=== PATIENT | female | born 1955 | race Two or more races ===

== ENCOUNTER 2017-06-07 20:36 | Emergency (ER) | payer MEDICARE, MEDICAID ==
[~2017-06-07] VITALS: Ht 162.6 cm; Wt 76.8 kg
[2017-06-07] MEDS ORDERED: SODIUM CHLORIDE 0.9% 1,000ML IVBOLUS ONE (21:00)
[2017-06-07] MEDS ORDERED: MORPHINE SULFATE 4 MG/ML, 1ML IVPush PRN (21:00)
[2017-06-07] MEDS ORDERED: ONDANSETRON 2MG/ML, 2ML IVPush ONE (21:00)
[2017-06-07] MEDS ORDERED: LISI-170 PO (21:05)
[2017-06-07] MEDS ORDERED: OXYC5TAB3 PO (21:05)
[2017-06-07] MEDS ORDERED: CYCL5TAB PO (21:05)
[2017-06-07] MEDS ORDERED: NAPR500T PO (21:05)
[2017-06-07] MEDS ORDERED: ONDANSETRON 2MG/ML, 2ML ONE (21:06)
[2017-06-07] MEDS ORDERED: MORPHINE SULFATE 4 MG/ML, 1ML ONE (21:06)
[2017-06-07 21:14] LABS: BLOOD UREA NITROGEN 12 mg/dL (7-18)
[2017-06-07 21:15] LABS: ASPARTATE AMINO TRANSFERASE 41 U/L (15-37)
[2017-06-08 00:07] VITALS: BP 109/74
== END 2017-06-08 00:10 | disposition home or self-care (01) ==
LOC: ED 21:54
DX: N30.00 Acute cystitis without hematuria (principal); Z88.0 Allergy status to penicillin; Z88.6 Allergy status to analgesic agent; Z88.8 Allergy status to other drugs, medicaments and biological substances
CPT/HCPCS: 36415; 76700; 80053; 81001; 83690; 85025; 87086; 96361; 96374; 96375; 99285; J2405; J7030

== ENCOUNTER 2017-07-27 19:32 | Emergency (ER) | payer MEDICARE, MEDICAID ==
[~2017-07-27] VITALS: Ht 162.6 cm; Wt 77.9 kg
[~2017-07-27 19:32] MED LIST: CYCL5TAB PO; LISI-170 PO; NAPR500T PO; OXYC5TAB3 PO
[2017-07-27 19:34] VITALS: BP 133/85
[2017-07-27] MEDS ORDERED: DIPH,PERTUSS(ACELL),TET VAC/PF 0.5 ML IM-VACC ONE ×2 (20:00→21:26)
[2017-07-27] MEDS ORDERED: LIDOCAINE 1%, 20ML SQ ONE (20:00)
[2017-07-27] MEDS ORDERED: LIDOCAINE 1%, 20ML ONE (21:15)
== END 2017-07-27 22:52 | disposition home or self-care (01) ==
LOC: ED 21:33
DX: S61.215A Laceration without foreign body of left ring finger without damage to nail, initial encounter (principal); Z88.0 Allergy status to penicillin; Z90.49 Acquired absence of other specified parts of digestive tract; W26.8XXA Contact with other sharp object(s), not elsewhere classified, initial encounter; Y93.G1 Activity, food preparation and clean up; Y92.89 Other specified places as the place of occurrence of the external cause; Y99.8 Other external cause status
CPT/HCPCS: 12001; 90471; 90715

== ENCOUNTER → 2018-08-30 | Outpatient (CLI) | payer MEDICARE, MEDICAID ==
[~2018-08-30] MED LIST changes: +NAPR-856 PO; -NAPR500T PO
== END | disposition home or self-care (01) ==
LOC: CFH 11:33
PROVIDERS: ATTEND Family Medicine
DX: R05 Cough (principal)
CPT/HCPCS: 71046

== ENCOUNTER → 2018-09-20 | Outpatient (CLI) | payer MEDICARE, MEDICAID ==
[2018-09-20 13:01] LABS: BASOPHILS # (AUTO) 0.06 x10^3/uL (0-0.1); BASOPHILS % (AUTO) 1 % (0-1); EOSINOPHILS # (AUTO) 0.12 x10^3/uL (0-0.4); EOSINOPHILS % (AUTO) 2 % (1-7); LYMPHOCYTES # (AUTO) 2.79 x10^3/uL (1-3.4); LYMPHOCYTES % (AUTO) 46 % (22-44); MD NO; MEAN CORPUSCULAR HEMOGLOBIN 32.9 pg (27.0-34.8); MEAN CORPUSCULAR HGB CONC 34.5 g/dL (32.4-35.8); MEAN CORPUSCULAR VOLUME 95.2 fL (80-100); MEAN PLATELET VOLUME 8.8 fL (7.4-10.4); MONOCYTES # (AUTO) 0.39 x10^3/uL (0.2-0.8); MONOCYTES % (AUTO) 7 % (2-9); NEUTROPHILS # (AUTO) 2.67 x10^3/uL (1.8-6.8); NEUTROPHILS % (AUTO) 44 % (42-75); PLATELET COUNT 215 x10^3/uL (130-400); RED BLOOD COUNT 4.38 x10^6/uL (3.82-5.3); RED CELL DISTRIBUTION WIDTH 13.5 % (9.6-15.2)
[2018-09-20 13:11] LABS: ALBUMIN 3.9 g/dL (3.4-5.0); ANION GAP 7 mmol/L (5-15); CALCIUM 8.7 mg/dL (8.5-10.1); CHLORIDE 109 mmol/L (98-107)
[2018-09-20 13:23] LABS: ALANINE AMINOTRANSFERASE 57 U/L (12-78); ALKALINE PHOSPHATASE 82 U/L (45-117); BILIRUBIN,TOTAL 0.6 mg/dL (0.2-1.0); CREATININE 0.46 mg/dL (0.55-1.02); FREE T4 (FREE THYROXINE) 0.96 ng/dL (0.76-1.46); TOTAL PROTEIN 8.1 g/dL (6.4-8.2)
== END | disposition home or self-care (01) ==
LOC: CFH 10:13
PROVIDERS: ATTEND Family Medicine
DX: R10.13 Epigastric pain (principal); R05 Cough; R68.2 Dry mouth, unspecified; R13.10 Dysphagia, unspecified; R52 Pain, unspecified
CPT/HCPCS: 36415; 80053; 84439; 84443; 84480; 85025; 86480

== ENCOUNTER → 2019-03-16 | Outpatient (CLI) | payer MEDICARE, MEDICAID | END | disposition home or self-care (01) | LOC: CFH 09:26 | PROVIDERS: ATTEND Licensed Practical Nurse | DX: Z12.31 Encounter for screening mammogram for malignant neoplasm of breast (principal) | CPT/HCPCS: 77067 ==

== ENCOUNTER 2020-12-27 13:49 | Outpatient (CLI) | payer MEDICARE, MEDICAID ==
[~2020-12-27 13:49] MED LIST changes: -OXYC5TAB3 PO; +OXYC5TAB98 PO
[2020-12-27] MEDS ORDERED: ACET-1600 PO (14:12)
[2020-12-27] MEDS ORDERED: ESOM40CA PO (14:12)
== END 2020-12-27 23:59 | disposition home or self-care (01) ==
LOC: STAR 13:49
PROVIDERS: ATTEND Orthopaedic Surgery
DX: Z01.812 Encounter for preprocedural laboratory examination (principal); Z20.822 Contact with and (suspected) exposure to COVID-19; M25.512 Pain in left shoulder; M19.012 Primary osteoarthritis, left shoulder; R94.31 Abnormal electrocardiogram [ECG] [EKG]
CPT/HCPCS: 87635; 93005

== ENCOUNTER 2021-01-02 09:07 | Day surgery (SDC) | payer MEDICARE, MEDICAID ==
[~2021-01-02] VITALS: Ht 162.6 cm; Wt 71.6 kg
[~2021-01-02 09:07] MED LIST changes: +ACET-1600 PO; +BUPIVACAINE LIPOSOME/PF 10ML INFIL ONE; +BUPIVACAINE/PF 0.5% ONE; +CLINDAMYCIN 150 MG/ML, 6ML ONE; +ESOM40CA PO
[2021-01-02 09:39] VITALS: BP 122/80
[2021-01-02] MEDS ORDERED: MIDAZOLAM 1 MG/ML, 2ML ONE (09:42)
[2021-01-02] MEDS ORDERED: FENTANYL PF 100 MCG/2ML ONE ×2 (09:42→13:06)
[2021-01-02] MEDS ORDERED: DIPH25CA61 PO (09:43)
[2021-01-02] MEDS ORDERED: CHLORHEXIDINE 15 ML UDC ONE (09:48)
[2021-01-02] MEDS ORDERED: CHLORHEXIDINE 15 ML UDC MM ONE (10:00)
[2021-01-02] MEDS ORDERED: LACTATED RINGERS 1,000 ML IV SCH (10:00)
[2021-01-02] MEDS ORDERED: DIPHENHYDRAMINE 25 MG CAPSULE PO SCH (10:30)
[2021-01-02] MEDS ORDERED: NAPROXEN 500 MG TABLET PO SCH (10:30)
[2021-01-02] MEDS ORDERED: MEPERIDINE/PF 25MG/0.5ML IVPush PRN (11:30)
[2021-01-02] MEDS ORDERED: OXYcodone 5 MG/5 ML ORAL.SOL UDC PO PRN (11:30)
[2021-01-02] MEDS ORDERED: FENTANYL PF 100 MCG/2ML IV PRN (11:30)
[2021-01-02] MEDS ORDERED: HYDROmorphone 1 MG/ML, 1ML INJ IVPush PRN (11:30)
[2021-01-02] MEDS ORDERED: hydrALAzine 20 MG/ML, 1ML IV PRN (11:30)
[2021-01-02] MEDS ORDERED: PROMETHAZINE 25 MG/ML, 1ML IVPush PRN (11:30)
[2021-01-02] MEDS ORDERED: ALBUTEROL SULFATE 2.5 MG/3 ML NPPB PRN (11:30)
[2021-01-02] MEDS ORDERED: LABETALOL 5MG/ML, 20ML IV PRN (11:30)
[2021-01-02] MEDS ORDERED: MIDAZOLAM 1 MG/ML, 2ML IV PRN (11:30)
[2021-01-02] MEDS ORDERED: ACETAMINOPHEN 325 MG TABLET PO PRN (11:30)
[2021-01-02] MEDS ORDERED: CEFAZOLIN 1,000 MG ONE (11:38)
[2021-01-02] MEDS ORDERED: ONDANSETRON 2MG/ML, 2ML ONE (11:38)
[2021-01-02] MEDS ORDERED: NEOSTIGMINE 1 MG/ML, 10ML ONE (11:38)
[2021-01-02] MEDS ORDERED: LIDOCAINE-MPF 2% ,5ML ONE (11:38)
[2021-01-02] MEDS ORDERED: BUPIVACAINE/PF 0.5% ONE (11:38)
[2021-01-02] MEDS ORDERED: PROPOFOL 10 MG/ML, 20ML ONE (11:38)
[2021-01-02] MEDS ORDERED: DEXAMETHASONE 4 MG/ML, 1ML ONE (11:38)
[2021-01-02] MEDS ORDERED: ROCURONIUM 10MG/ML,5ML ONE (11:38)
[2021-01-02] MEDS ORDERED: GLYCOPYRROLATE 0.2MG/1ML, 5ML ONE (11:38)
[2021-01-02] MEDS ORDERED: ACETAMINOPHEN 650 MG/20.3 ML UDC ONE (13:05)
[2021-01-02] MEDS ORDERED: OXYcodone 5 MG/5 ML ORAL.SOL UDC ONE (13:06)
[2021-01-02] MEDS ORDERED: ALTEPLASE 10 MG in SODIUM CHLORIDE 0.9% 50 ML, SYRINGE 1 EA IV ONE (15:00)
[2021-01-02] MEDS ORDERED: ACETAMINOPHEN 500 MG TABLET PO SCH (21:00)
[2021-01-03] MEDS ORDERED: TEMPLATE NON-FORMULARY MED. (Esomeprazole Magnesium** (Nexium**) 40 MG) PO SCH (09:00)
== END 2021-01-02 14:55 | disposition home or self-care (01) ==
LOC: OUT 09:07
PROVIDERS: ATTEND Orthopaedic Surgery
DX: M19.012 Primary osteoarthritis, left shoulder (principal); M65.812 Other synovitis and tenosynovitis, left shoulder; G89.18 Other acute postprocedural pain; K21.9 Gastro-esophageal reflux disease without esophagitis; E78.5 Hyperlipidemia, unspecified; Z79.891 Long term (current) use of opiate analgesic; Z79.899 Other long term (current) drug therapy; Z87.891 Personal history of nicotine dependence; Z88.0 Allergy status to penicillin; Z88.8 Allergy status to other drugs, medicaments and biological substances; Z98.890 Other specified postprocedural states; Z82.61 Family history of arthritis; Z82.3 Family history of stroke
CPT/HCPCS: 23472; 64415; C1713; C1776; J0690; J1100; J2250; J2405; J2704; J2710; J3010; J7120

== ENCOUNTER → 2021-05-14 | Outpatient (CLI) | payer MEDICARE, MEDICAID ==
[~2021-05-14] MED LIST changes: -BUPIVACAINE LIPOSOME/PF 10ML INFIL ONE; -BUPIVACAINE/PF 0.5% ONE; -CLINDAMYCIN 150 MG/ML, 6ML ONE; +DIPH25CA61 PO
== END | disposition home or self-care (01) ==
LOC: CFH 08:54
PROVIDERS: ATTEND Family Medicine
DX: Z12.31 Encounter for screening mammogram for malignant neoplasm of breast (principal); M85.88 Other specified disorders of bone density and structure, other site; M89.49 Other hypertrophic osteoarthropathy, multiple sites; N95.8 Other specified menopausal and perimenopausal disorders
CPT/HCPCS: 77063; 77067; 77080